=== PATIENT | male | born 1965 | race Caucasian/White ===

== ENCOUNTER 2023-12-09 08:47 | Outpatient (CLI) | payer MEDICARE, MEDICAID ==
[~2023-12-09] VITALS: Ht 190.5 cm; Wt 103.0 kg
[2023-12-09] VITALS (7 sets, daily range): BP systolic 122–143; BP diastolic 46–89; PULSE 59–80; TEMP 98.8
[~2023-12-09 08:47] MED LIST: COUMADIN 5MG5 MG/TAB PO; HUMALOG100 U/ML SC; KLOR-CON 1010 MEQ PO; LANOXIN 0.120.125 MG PO; LANTUS100 U/ML SQ; LASIX 20MG TABL20 MG PO; LISINOPRIL20 MG PO; MVI; TERAZOSIN HCL
[2023-12-09] MEDS ORDERED: PRAVACHOL 20MG20 MG PO (09:23)
[2023-12-09] MEDS ORDERED: ZETIA 10MG TAB10 MG PO (09:23)
[2023-12-09] MEDS ORDERED: NEURONTIN300 MG/CAP PO (09:24)
[2023-12-09] MEDS ORDERED: TOPROL XL 50MG50 MG PO (09:24)
[2023-12-09] MEDS ORDERED: XARELTO20 MG PO (09:25)
[2023-12-09] MEDS ORDERED: DESYREL 50MG50 MG PO (09:25)
[2023-12-09] MEDS ORDERED: ZAROXOLYN 2.52.5 MG PO (09:26)
[2023-12-09] MEDS ORDERED: DEMADEX 20MG20 M1 PO (09:26)
[2023-12-09] MEDS ORDERED: AMOXICILLIN/CLA1 TA1 PO (09:26)
[2023-12-09] MEDS ORDERED: AMBIEN 10MG10 MG PO (09:27)
[2023-12-09] MEDS ORDERED: DAZIDOX10 MG PO (09:28)
[2023-12-09] MEDS ORDERED: PROAIR HFA0.09 MG/AC IH (09:30)
[2023-12-09] MEDS ORDERED: BREZTRI AEROS10.7 GM IH (09:31)
[2023-12-09] MEDS ORDERED: COMPLETE MULTI1 TAB PO (09:31)
[2023-12-09] MEDS ORDERED: VITAMIN D31000 I1 PO (09:32)
[2023-12-09] MEDS ORDERED: PROBIOTIC ACID1 EAC3 PO (09:32)
[2023-12-09] MEDS ORDERED: TYLENOL 8 HR PO (09:33)
[2023-12-09] MEDS ORDERED: FLAXSEED OIL1000 MG PO (09:33)
[2023-12-09] MEDS ORDERED: TYLENOL PM EXTR1 TA1 PO (09:35)
[2023-12-09] MEDS ORDERED: ZYRTEC 10MG10 MG PO (09:35)
[2023-12-09] MEDS ORDERED: NYQUIL GENERIC PO (09:36)
[2023-12-09] MEDS ORDERED: ceFAZolin 2 G in Water For Injection,Sterile 20 ML IV SCH (10:30)
[2023-12-09] MEDS ORDERED: Heparin 1,000 UNITS/ML 10 ML Multi-Dose VIAL ICA SCH (11:10)
[2023-12-09] MEDS ORDERED: fentaNYL 50 MCG/ML 2 ML VIAL IV SCH (11:11)
[2023-12-09] MEDS ORDERED: Midazolam 2 MG/2 ML VIAL IV SCH (11:13)
--- NOTE | 2023-12-09 11:18 | NUR ---
SEE MERGE FOR PROCEDURE DOCUMENTATION.
[2023-12-09] MEDS ORDERED: Lidocaine 2% w EPI (1:100,000) 20 ML Multi-Dose VIAL IJ SCH (11:30)
--- NOTE | 2023-12-09 11:41 | NUR ---
PATIENT ALERT AND ORIENTED, TRANSFERRED VIA SLIDE BOARD TO BED AND TRANSPORTED TO [facility]. PATIENT DENIES PAIN AT EXCHANGE SITE, BRUISING AT SITE REMAINS PRE-PROCEDURE. SPOUSE MET AT BEDSIDE, UPDATE GIVEN. VITAL SIGNS TAKEN ON ARRIVAL, VSS. SITE CHECKED WITH ALEJANDRO HENSON. TRANSFER OF CARE TO [facility]AG[facility]. CALL LIGHT WITHIN REACH, BED IN LOWEST POSITION, X3 BEDRAILS IN PLACE.
--- NOTE | 2023-12-09 12:36 | NUR ---
DC instructions reviewed with pt and . Both express understanding. IV DC's, site wrapped with coban. Pt has tolerated pudding and soda. Plans to go to lunch after discharge. He is able to transfer self independaly from bed to wheelchair. He is assisted out to entrance by wheelchair.
== END 2023-12-09 12:38 | disposition home or self-care (01) ==
LOC: COL.CAR 08:47
DX: T82.9XXA Unspecified complication of cardiac and vascular prosthetic device, implant and graft, initial encounter (principal); E11.22 Type 2 diabetes mellitus with diabetic chronic kidney disease; F17.200 Nicotine dependence, unspecified, uncomplicated; N18.9 Chronic kidney disease, unspecified; Z79.4 Long term (current) use of insulin; Y84.1 Kidney dialysis as the cause of abnormal reaction of the patient, or of later complication, without mention of misadventure at the time of the procedure
CPT/HCPCS: C1750; J0690; J1644; J2250; J3010

== ENCOUNTER → 2024-05-27 | Outpatient (CLI) | payer MEDICARE, MEDICAID ==
[~2024-05-27] VITALS: Ht 190.5 cm; Wt 74.0 kg
[~2024-05-27] MED LIST changes: +ACIDOPHILIS PO; +AMBIEN 10MG10 MG PO; +AMOXICILLIN/CLA1 TA1 PO; +AUGMENTIN 250 M1 TAB PO; +BREZTRI AEROS10.7 GM IH; +COLACE 100100 MG/CAP PO; +COMPLETE MULTI1 TAB PO; +CVS SPECTRAVIT1 EA15 PO; +DAZIDOX10 MG PO; +DEMADEX 20MG20 M1 PO; +DESYREL 50MG50 MG PO; +ELIQUIS 5MG PO; +FLAXSEED OIL1000 MG PO; +FLOMAX 0.40.4 MG/CAP PO; +HUMALOG100 U/ML SQ; +KAPSPARGO SPRIN25 MG PO; +Lidocaine 2% w EPI (1:100,000) 20 ML Multi-Dose VIAL IJ SCH; +NEURONTIN300 MG/CAP PO; +NYQUIL GENERIC PO; +PRAVACHOL 20MG20 MG PO; +PROAIR HFA0.09 MG/AC IH; +PROBIOTIC ACID1 EAC3 PO; +PROZAC 10MG10 MG PO; +REGLAN 5MG T5 MG/TAB PO; +TOPROL XL 50MG50 MG PO; +TYLENOL 8 HR PO; +TYLENOL PM EXTR1 TA1 PO; +VITAMIN D31000 I1 PO; +XARELTO20 MG PO; +ZAROXOLYN 2.52.5 MG PO; +ZETIA 10MG TAB10 MG PO; +ZYRTEC 10MG10 MG PO
[2024-05-27 14:41] VITALS: BP 106/72; PULSE 90; TEMP 97.7
[2024-05-27 15:30] VITALS: BP 97/60; PULSE 90
--- NOTE | 2024-05-27 15:40 | NUR ---
TDC REMOVAL TOLERATED WELL. PRESSURE HELD ABOVE INSERTION SITE FOR 5 MINUTES AND STERILE DRESSING PLACED TO INSERTION SITE. NO BLEEDING NOTED AT SITE UPON DRESSING. TRANSFER OF CARE TO [facility]II MITTAL.
== END ==
LOC: COL.RAD 13:15
DX: N18.4 Chronic kidney disease, stage 4 (severe) (principal)